=== PATIENT | female | born 1940 | race Caucasian/White ===

== ENCOUNTER 2017-09-26 15:06 | Day surgery (SDC) | payer MEDICARE, OTHER ==
[~2017-09-26 15:06] MED LIST: ALBU90OI INH; AMOX500 PO; ASPI81CH PO; ASPI81EC; ASPI81EC PO; ATOM10 PO; ATOR20 PO; Antivert25 MG PO; Budeprion Sr150 MG PO; CALCAVITD PO; CHOL10002 PO; CHRO200 PO; CYAN500 PO; DOCU100 PO; ERGO400 PO; ESTR2; ESTR2 PO; EZET10-40 PO; EZETIMIBE; GLIM2 PO; HYDACE5 PO; Hair, Skin & N1 EACH PO; Klor-Con 1010 MEQ PO; LEVO; LEVSOD125 PO; LEVSOD200; LEVSOD200 PO; LIOT5 PO; LOSA25 PO; METF500 PO; METF500C PO; METO50 PO; MULVITA PO; MULVITMIND PO; OLME20 PO; OXYACE5T PO; Omeprazole20 M1 PO; POTA10T; PRED20 PO; PROBIOTIC1 EAC2 PO; SIMV80 PO; SIMVASTATIN; SITA50T2 PO; TOLT2 PO; TOLT2ER PO; TOLT4; TOLT4 PO; TOPI100 PO; VENL37.5; VENL37.5ER PO; VITB100 PO; Zofran Odt4 MG SL
[2017-09-26] MEDS ORDERED: Zyprexa10 MG PO (18:13)
[2017-09-26] MEDS ORDERED: METO10 PO (18:13)
[2017-09-26] MEDS ORDERED: DEXA4 PO ×2 (18:14→18:16)
[2017-09-26] MEDS ORDERED: LIDOCAINE-PRIL1 EACH TOP (18:17)
[2017-09-26] MEDS ORDERED: LORA.5 PO (18:18)
[2017-09-26] MEDS ORDERED: PROC10 PO (18:19)
[2018-01-08] MEDS ORDERED: Questran4 GM PO (09:26)
== END 2017-09-26 17:00 | disposition home or self-care (01) ==
LOC: ATC 15:06
DX: C50.812 Malignant neoplasm of overlapping sites of left female breast (principal); C77.3 Secondary and unspecified malignant neoplasm of axilla and upper limb lymph nodes; Z17.1 Estrogen receptor negative status [ER-]; Z95.828 Presence of other vascular implants and grafts; Z79.899 Other long term (current) drug therapy
CPT/HCPCS: 96360; J1642; J7030

== ENCOUNTER 2017-10-03 00:43 | Day surgery (SDC) | payer MEDICARE, OTHER ==
[~2017-10-03 00:43] MED LIST changes: +DEXA4 PO; +LIDOCAINE-PRIL1 EACH TOP; +LORA.5 PO; +METO10 PO; +PROC10 PO; +Zyprexa10 MG PO
[2018-01-08] MEDS ORDERED: Questran4 GM PO (09:26)
== END 2017-10-03 15:08 | disposition home or self-care (01) ==
LOC: ATC 00:43
DX: R19.7 Diarrhea, unspecified (principal); R11.2 Nausea with vomiting, unspecified; C50.812 Malignant neoplasm of overlapping sites of left female breast; C77.3 Secondary and unspecified malignant neoplasm of axilla and upper limb lymph nodes; Z17.1 Estrogen receptor negative status [ER-]; Z95.828 Presence of other vascular implants and grafts; Z79.899 Other long term (current) drug therapy
CPT/HCPCS: 96360; J1642; J7030

== ENCOUNTER → 2017-11-04 | Outpatient (CLI) | payer MEDICARE, OTHER ==
[~2017-11-04] MED LIST changes: +Questran4 GM PO
[2017-11-04 13:35] LABS: Hematocrit 30.7 % (33.0-51.0); Hemoglobin 10.5 g/dL (11.5-16.0); Mean Corpuscular HGB 32.8 pg (26.0-34.0); Mean Corpuscular HGB Conc 34.2 g/dL (31.5-36.5); Mean Corpuscular Volume 96 fL (80-100); Platelet Count 99 K/mm3 (150-400); RDW Coefficient Variation 15.1 % (11.7-14.2); RDW Standard Deviation 53.4 fL (35.1-46.3); White Blood Cell Count 4.01 K/mm3 (4.00-11.30)
[2017-11-04 13:54] LABS: Alanine Aminotransfer (ALT/SGP 27 U/L (12-78); Albumin, Blood 3.1 g/dL (3.4-5.0); Albumin/Globulin Ratio 1.1 (0.8-1.8); Alk Phos 86 U/L (50-136); Anion Gap 10 mmol/L (6-16); Aspartate Aminotrans (AST/SGOT 9 U/L (12-37); Bilirubin, Total 0.4 mg/dL (0.1-1.0); Blood Urea Nitrogen 15 mg/dL (8-24); Bun/Creatinine Ratio 19.8 (12.0-20.0); CO2, Blood 21 mmol/L (21-32); Calcium, Blood 7.7 mg/dL (8.5-10.1); Chloride, Blood 107 mmol/L (98-108); Creatinine, Blood 0.76 mg/dL (0.40-1.00); Globulin, Blood 2.9 g/dL (2.2-4.0); Glomerular Filtration Rate >60 (60-); Glucose, Blood 79 mg/dL (70-99); Potassium, Blood 3.8 mmol/L (3.5-5.5); Sodium, Blood 138 mmol/L (136-145)
[2017-11-04 14:01] LABS: BAND PERCENT MAN 2 % (0-8); BASOPHILS ABSOLUTE MAN 0.04 K/mm3 (0.00-0.23); BASOPHILS PERCENT MAN 1 % (0-2); EOSINOPHILS PERCENT MAN 0 % (0-6); LYMPHOCYTES % ATYPICAL MANUAL 2 % (0-0); LYMPHOCYTES PERCENT MAN 38 % (21-46); MONOCYTES PERCENT MAN 15 % (4-13); NEUTROPHILS ABSOLUTE MAN 1.76 K/mm3 (1.96-9.15); SEG NEUTROPHILS PERCENT MAN 42 % (41-73); TOTAL CELLS COUNTED 100
== END ==
LOC: LAB 12:46
PROVIDERS: Internal Medicine Hematology & Oncology
DX: C50.812 Malignant neoplasm of overlapping sites of left female breast (principal); C77.3 Secondary and unspecified malignant neoplasm of axilla and upper limb lymph nodes; K12.31 Oral mucositis (ulcerative) due to antineoplastic therapy; R19.7 Diarrhea, unspecified; E86.0 Dehydration; Z17.1 Estrogen receptor negative status [ER-]
CPT/HCPCS: 80053; 85025

== ENCOUNTER 2017-11-07 00:17 | Day surgery (SDC) | payer MEDICARE, OTHER ==
[~2017-11-07 00:17] MED LIST changes: -Questran4 GM PO
[2018-01-08] MEDS ORDERED: Questran4 GM PO (09:26)
== END 2017-11-07 16:09 | disposition home or self-care (01) ==
LOC: ATC 00:17
DX: C50.812 Malignant neoplasm of overlapping sites of left female breast (principal); C77.3 Secondary and unspecified malignant neoplasm of axilla and upper limb lymph nodes; Z17.1 Estrogen receptor negative status [ER-]; E86.0 Dehydration; R19.7 Diarrhea, unspecified; E11.9 Type 2 diabetes mellitus without complications; E78.00 Pure hypercholesterolemia, unspecified; E03.9 Hypothyroidism, unspecified; F41.9 Anxiety disorder, unspecified
CPT/HCPCS: 96360; J1642; J7030

== ENCOUNTER → 2017-11-18 | Outpatient (CLI) | payer MEDICARE, OTHER ==
[~2017-11-18] MED LIST changes: +Questran4 GM PO
[2017-11-18 11:42] LABS: BASOPHILS ABSOLUTE AUTO 0.02 K/mm3 (0.00-0.23); BASOPHILS PERCENT AUTO 0 % (0-2); EOSINOPHILS PERCENT AUTO 0 % (0-6); Hemoglobin 9.3 g/dL (11.5-16.0); IMMATURE GRAN ABSOLUTE AUTO 0.07 K/mm3 (0.00-0.10); IMMATURE GRAN PERCENT AUTO 1 % (0-1); LYMPHOCYTES ABSOLUTE AUTO 1.16 K/mm3 (0.84-5.20); LYMPHOCYTES PERCENT AUTO 15 % (21-46); MONOCYTES ABSOLUTE AUTO 0.24 K/mm3 (0.16-1.47); MONOCYTES PERCENT AUTO 3 % (4-13); Mean Corpuscular HGB 33.2 pg (26.0-34.0); Mean Corpuscular HGB Conc 33.2 g/dL (31.5-36.5); Mean Platelet Volume 9.2 fL (9.1-12.4); NEUTROPHILS ABSOLUTE AUTO 6.25 K/mm3 (1.96-9.15); NEUTROPHILS PERCENT AUTO 81 % (41-73); Platelet Count 243 K/mm3 (150-400); RDW Coefficient Variation 18.1 % (11.7-14.2); RDW Standard Deviation 64.8 fL (35.1-46.3); White Blood Cell Count 7.74 K/mm3 (4.00-11.30)
[2017-11-18 11:56] LABS: Mean Corpuscular Volume 100 fL (80-100)
[2017-11-18 12:33] LABS: Anion Gap 8 mmol/L (6-16); Blood Urea Nitrogen 10 mg/dL (8-24); Bun/Creatinine Ratio 15.6 (12.0-20.0); CO2, Blood 24 mmol/L (21-32); Calcium, Blood 7.9 mg/dL (8.5-10.1); Chloride, Blood 108 mmol/L (98-108); Creatinine, Blood 0.64 mg/dL (0.40-1.00); Glomerular Filtration Rate >60 (60-); Glucose, Blood 192 mg/dL (70-99); Potassium, Blood 3.9 mmol/L (3.5-5.5); Sodium, Blood 140 mmol/L (136-145)
== END ==
LOC: LAB 11:01
PROVIDERS: Internal Medicine Hematology & Oncology
DX: C50.812 Malignant neoplasm of overlapping sites of left female breast (principal); C77.3 Secondary and unspecified malignant neoplasm of axilla and upper limb lymph nodes; K12.31 Oral mucositis (ulcerative) due to antineoplastic therapy; E87.6 Hypokalemia; R19.7 Diarrhea, unspecified; Z17.1 Estrogen receptor negative status [ER-]
CPT/HCPCS: 80048; 85025

== ENCOUNTER 2018-01-05 07:18 | Day surgery (SDC) | payer MEDICARE, OTHER ==
[~2018-01-05 07:18] MED LIST changes: -Questran4 GM PO
[2018-01-08] MEDS ORDERED: Questran4 GM PO (09:26)
== END 2018-01-05 22:44 | disposition home or self-care (01) ==
LOC: MOI US 07:18
PROC: BH01ZZZ Plain Radiography of Left Breast (ICD-10-PCS; principal; 2018-01-05)
DX: C50.812 Malignant neoplasm of overlapping sites of left female breast (principal); C77.3 Secondary and unspecified malignant neoplasm of axilla and upper limb lymph nodes
CPT/HCPCS: 19281; 19282

== ENCOUNTER → 2018-12-30 | Outpatient (CLI) | payer MEDICARE, OTHER ==
[~2018-12-30] MED LIST changes: +Questran4 GM PO
== END | disposition home or self-care (01) ==
LOC: LAB 10:50 → LAB SHORT 10:50
DX: A60.00 Herpesviral infection of urogenital system, unspecified (principal)
CPT/HCPCS: 87529

== ENCOUNTER → 2019-10-21 | Outpatient (CLI) | payer MEDICARE, OTHER ==
[2019-10-21 15:08] LABS: Source, Urine Clean Catch
[2019-10-21 15:24] LABS: Bilirubin, Urine Neg (Neg); Blood, Urine Neg (Neg); Glucose Qualitative, Urine 2+ (Neg); Ketones, Urine Neg (Neg); Leukocyte Esterase, Urine 2+ (Neg); Nitrite, Urine Neg (Neg); Protein, Urine 1+ (Neg); Specific Gravity, Urine 1.015 (1.003-1.022); Urobilinogen, Urine NORM (Normal)
[2019-10-21 16:21] LABS: Appearance, Urine Clear (Clear); Color, Urine Yellow (P-Yellow)
[2019-10-21 16:23] LABS: Bacteria Rare /hpf; Red Blood Cells, Urine 0-2 /hpf (0-2); Squamous Epithelial Cells Few /hpf (Few)
== END ==
LOC: LAB SHORT 15:06
PROVIDERS: Registered Nurse
DX: N32.81 Overactive bladder (principal)
CPT/HCPCS: 81001; 87086

== ENCOUNTER → 2021-06-12 | Outpatient (CLI) | payer MEDICARE ==
[2021-06-12 12:31] LABS: BASOPHILS ABSOLUTE AUTO 0.03 K/mm3 (0.00-0.23); BASOPHILS PERCENT AUTO 1 % (0-2); EOSINOPHILS ABSOLUTE AUTO 0.06 K/mm3 (0.00-0.68); EOSINOPHILS PERCENT AUTO 2 % (0-6); Hematocrit 41.7 % (33.0-51.0); Hemoglobin 13.4 g/dL (11.5-16.0); IMMATURE GRAN PERCENT AUTO 0 % (0-1); LYMPHOCYTES ABSOLUTE AUTO 1.08 K/mm3 (0.84-5.20); LYMPHOCYTES PERCENT AUTO 28 % (21-46); MONOCYTES ABSOLUTE AUTO 0.38 K/mm3 (0.16-1.47); MONOCYTES PERCENT AUTO 10 % (4-13); Mean Corpuscular HGB 28.9 pg (26.0-34.0); Mean Corpuscular HGB Conc 32.1 g/dL (31.5-36.5); Mean Corpuscular Volume 90 fL (80-100); Mean Platelet Volume 9.6 fL (9.1-12.4); NEUTROPHILS ABSOLUTE AUTO 2.34 K/mm3 (1.96-9.15); NEUTROPHILS PERCENT AUTO 60 % (41-73); Platelet Count 260 K/mm3 (150-400); RDW Coefficient Variation 19.8 % (11.7-14.2); Red Blood Cell Count 4.64 M/mm3 (3.80-5.20); White Blood Cell Count 3.89 K/mm3 (4.00-11.30)
[2021-06-12 13:27] LABS: Alanine Aminotransfer (ALT/SGP 27 U/L (12-78); Albumin, Blood 3.5 g/dL (3.4-5.0); Albumin/Globulin Ratio 0.8 (0.8-1.8); Alk Phos 74 U/L (50-136); Anion Gap 3 mmol/L (6-16); Aspartate Aminotrans (AST/SGOT 15 U/L (12-37); Bilirubin, Total 0.4 mg/dL (0.1-1.0); Blood Urea Nitrogen 21 mg/dL (8-24); Bun/Creatinine Ratio 25.9 (12.0-20.0); CO2, Blood 30 mmol/L (21-32); Calcium, Blood 9.3 mg/dL (8.5-10.1); Chloride, Blood 101 mmol/L (98-108); Cholesterol 238 mg/dL (50-200); Creatinine, Blood 0.81 mg/dL (0.40-1.00); Globulin, Blood 4.3 g/dL (2.2-4.0); Glomerular Filtration Rate >60 (60-); Glucose, Blood 302 mg/dL (70-99); HDL Cholesterol 60 mg/dL (>39); LDL/HDL RATIO 2.6; Low Density Lipoprotein Chol 154 mg/dL (0-110); Potassium, Blood 4.1 mmol/L (3.5-5.5); Sodium, Blood 134 mmol/L (136-145); Total Protein, Blood 7.8 g/dL (6.4-8.2); Triglycerides 121 mg/dL (30-160); Very Low Density Lipoprot Chol 24 mg/dL (6-32)
== END | disposition home or self-care (01) ==
LOC: LAB SHORT 10:23 → LAB 10:23 → LAB FUT 03-30 17:15
PROVIDERS: Nurse Practitioner Family
DX: E78.5 Hyperlipidemia, unspecified (principal); E03.9 Hypothyroidism, unspecified; E11.9 Type 2 diabetes mellitus without complications; I10 Essential (primary) hypertension
CPT/HCPCS: 36415; 80053; 80061; 83036; 84443; 85025

== ENCOUNTER → 2021-11-14 | Outpatient (CLI) | payer MEDICARE ==
[2021-11-14 14:27] LABS: Anion Gap 10 mmol/L (6-16); Blood Urea Nitrogen 36 mg/dL (8-24); Bun/Creatinine Ratio 40.8 (12.0-20.0); CO2, Blood 27 mmol/L (21-32); Calcium, Blood 9.7 mg/dL (8.5-10.1); Chloride, Blood 104 mmol/L (98-108); Creatinine, Blood 0.88 mg/dL (0.40-1.00); Glomerular Filtration Rate >60 (60-); Glucose, Blood 225 mg/dL (70-99); Potassium, Blood 4.2 mmol/L (3.5-5.5); Sodium, Blood 141 mmol/L (136-145)
== END | disposition home or self-care (01) ==
LOC: LAB SHORT 10:52 → LAB FUT 07-26 11:05
PROVIDERS: Nurse Practitioner Family
DX: E11.9 Type 2 diabetes mellitus without complications (principal)
CPT/HCPCS: 36415; 80048; 83036

== ENCOUNTER 2022-03-12 12:19 | Day surgery (SDC) | payer MEDICARE, OTHER ==
[~2022-03-12] VITALS: Ht 167.6 cm; Wt 76.8 kg
[~2022-03-12 12:19] MED LIST changes: +BUSPIRONE HCL7.5 M1 PO; +JARDIANCE10 MG PO; +Prozac20 MG PO; +Prozac40 MG PO
== END 2022-03-12 14:45 | disposition home or self-care (01) ==
LOC: ORSCSDS 12:19
PROVIDERS: Surgery
PROC: 0DBL8ZX Excision of Transverse Colon, Via Natural or Artificial Opening Endoscopic, Diagnostic (ICD-10-PCS; principal; 2022-03-12 13:45)
DX: Z12.11 Encounter for screening for malignant neoplasm of colon (principal); Z86.010 Personal history of colon polyps; D12.3 Benign neoplasm of transverse colon; K57.30 Diverticulosis of large intestine without perforation or abscess without bleeding; E11.9 Type 2 diabetes mellitus without complications; I10 Essential (primary) hypertension; E03.9 Hypothyroidism, unspecified; E78.00 Pure hypercholesterolemia, unspecified; F32.A Depression, unspecified; F41.9 Anxiety disorder, unspecified; Z79.82 Long term (current) use of aspirin; Z79.899 Other long term (current) drug therapy
CPT/HCPCS: 82947; 88305; J2704; J7120

== ENCOUNTER 2024-12-20 17:07 | Observation (INO) | payer MEDICARE, OTHER ==
[~2024-12-20] VITALS: Ht 167.6 cm; Wt 81.4 kg
[~2024-12-20 17:07] MED LIST changes: +AMARYL4 M1 PO; +ATOR40TA PO; +CHOLP PO; +EUTHYROX125 MCG PO; -Questran4 GM PO; -TOLT2 PO; +TOLTERODINE TART4 MG PO
[2024-12-20 17:41] LABS: BASOPHILS ABSOLUTE AUTO 0.03 K/mm3 (0.00-0.23); BASOPHILS PERCENT AUTO 1 % (0-2); EOSINOPHILS ABSOLUTE AUTO 0.13 K/mm3 (0.00-0.68); EOSINOPHILS PERCENT AUTO 3 % (0-6); Hematocrit 37.6 % (33.0-51.0); Hemoglobin 11.9 g/dL (11.5-16.0); IMMATURE GRAN PERCENT AUTO 0 % (0-1); LYMPHOCYTES ABSOLUTE AUTO 1.35 K/mm3 (0.84-5.20); LYMPHOCYTES PERCENT AUTO 31 % (21-46); MONOCYTES PERCENT AUTO 9 % (4-13); Mean Corpuscular HGB 29.5 pg (26.0-34.0); Mean Corpuscular HGB Conc 31.6 g/dL (31.5-36.5); Mean Corpuscular Volume 93 fL (80-100); Mean Platelet Volume 9.7 fL (9.1-12.4); NEUTROPHILS ABSOLUTE AUTO 2.43 K/mm3 (1.96-9.15); NEUTROPHILS PERCENT AUTO 56 % (41-73); Platelet Count 267 K/mm3 (150-400); RDW Coefficient Variation 12.8 % (11.7-14.2); RDW Standard Deviation 43.8 fL (35.1-46.3); Red Blood Cell Count 4.03 M/mm3 (3.80-5.20); White Blood Cell Count 4.34 K/mm3 (4.00-11.30)
[2024-12-20 18:09] LABS: Albumin, Blood 3.6 g/dL (3.4-5.0); Albumin/Globulin Ratio 0.9 (0.8-1.8); Bilirubin, Total 0.2 mg/dL (0.1-1.0); Bun/Creatinine Ratio 34.9 (12.0-20.0); Calcium, Blood 9.2 mg/dL (8.5-10.1); Creatinine, Blood 0.72 mg/dL (0.40-1.00); Magnesium, Blood 1.2 mg/dL (1.6-2.4); Potassium, Blood 4.2 mmol/L (3.5-5.5); Total Protein, Blood 7.6 g/dL (6.4-8.2)
[2024-12-20 18:34] LABS: International Normalized Ratio 0.99; Prothrombin Time Results 10.6 Sec (9.7-11.5)
[2024-12-20] MEDS ORDERED: Ondansetron HCl 2 MG / ML 2ML Vial IV PRN (20:30)
[2024-12-20] MEDS ORDERED: NS 1,000 ML IV SCH (20:30)
[2024-12-20] MEDS ORDERED: Atorvastatin 40 MG Tab PO SCH (21:00)
[2024-12-20] MEDS ORDERED: Enoxaparin 40 MG/0.4 ML SYR SC SCH (21:00)
[2024-12-20] MEDS ORDERED: Aspirin 81 MG Chew PO SCH (21:00)
[2024-12-20] MEDS ORDERED: Clopidogrel Bisulfate 75 MG Tab PO SCH (21:00)
[2024-12-20 22:10] VITALS: BP 165/94
--- NOTE | 2024-12-20 22:21 | NUR ---
ADMIT NOTE 84 YR OLD FEMALS ADMITTED TO FLOOR FROM THE ED WITH DX OF TIA. ALERT AND ORIENTED X 4, OCCASIONAL FORGETFULNESS IN ANSWERING QUESTIONS. RESPS EVEN. UP WITH OBSESRVATOIN. ABLE TO REPOSITION SELF IN BED WITHOUT ASSISTANCE FOR COMFORT. ORIENTED TO USE OF CALL LIGHT, AND BED CONTROL. SKIN CLEAR. BUTCHER MEAT EQUAL, PLANTAR AND DORSI FLEXION EQUAL AND STRONG. DENIES LOS OF FEELING. WILL CONTINUE TO MONITOR. CALL LIGHT IN REACH
[2024-12-20] MEDS ORDERED: Magnesium Sulf 2 GM/Water 50ML 50 ML IV ONE (23:30)
[2024-12-21 00:01] VITALS: BP 160/88
[2024-12-21 01:23] LABS: Source, Urine Clean Catch
[2024-12-21 01:25] LABS: Bilirubin, Urine Neg (Neg); Blood, Urine Neg (Neg); Glucose Qualitative, Urine Neg (Neg); Ketones, Urine Neg (Neg); Leukocyte Esterase, Urine 1+ (Neg); Nitrite, Urine Pos (Neg); Protein, Urine Neg (Neg); Urobilinogen, Urine NORM (Normal)
[2024-12-21 01:30] LABS: Appearance, Urine Clear (Clear); Color, Urine Pale Yellow (P-Yellow)
[2024-12-21 01:33] LABS: Bacteria Many /hpf; Red Blood Cells, Urine Not Seen /hpf (0-2); Squamous Epithelial Cells Not Seen /hpf (Few)
--- NOTE | 2024-12-21 03:34 | NUR ---
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 BP ELEVATED, OTHERWISE VSS. ALERT AND ORIENTED, BUT SOME MISSED WORDS NOTED WITH SPEECH. VOICED FRUSTRATION WITH NOT REMEMBERING WORDS. IVF OF NS INFUSING AT 75 ML/HR. MAGNESIUM ADMIN FOR ONE TIME ONLY SUPPLEMENT FOR LOW MAG. AWAKE AT INTERVALS UA OBTAINED AND SENT TO LAB FOR TESTING. ORIENTED TO USE OF CALL LIGHT. CALL LIGHT IN REACH, RAILS UP X 3 AND BED IN LOW POSITION FOR SAFETY. NEURO CHECKS DONE - SEE DOC FLOW SHEETS FOR PROGRESS. UP KIRSTIN WITH ASSIST. WILL CONT TO MONITOR
[2024-12-21 03:57] VITALS: BP 131/77
[2024-12-21 05:30] LABS: BASOPHILS ABSOLUTE AUTO 0.03 K/mm3 (0.00-0.23); BASOPHILS PERCENT AUTO 1 % (0-2); EOSINOPHILS ABSOLUTE AUTO 0.15 K/mm3 (0.00-0.68); EOSINOPHILS PERCENT AUTO 5 % (0-6); Hematocrit 34.3 % (33.0-51.0); Hemoglobin 11.1 g/dL (11.5-16.0); IMMATURE GRAN PERCENT AUTO 0 % (0-1); LYMPHOCYTES ABSOLUTE AUTO 1.56 K/mm3 (0.84-5.20); LYMPHOCYTES PERCENT AUTO 47 % (21-46); MONOCYTES PERCENT AUTO 9 % (4-13); Mean Corpuscular HGB 29.3 pg (26.0-34.0); Mean Corpuscular HGB Conc 32.4 g/dL (31.5-36.5); Mean Corpuscular Volume 91 fL (80-100); Mean Platelet Volume 9.7 fL (9.1-12.4); NEUTROPHILS ABSOLUTE AUTO 1.31 K/mm3 (1.96-9.15); NEUTROPHILS PERCENT AUTO 39 % (41-73); Platelet Count 237 K/mm3 (150-400); RDW Coefficient Variation 12.7 % (11.7-14.2); RDW Standard Deviation 42.3 fL (35.1-46.3); Red Blood Cell Count 3.79 M/mm3 (3.80-5.20); White Blood Cell Count 3.35 K/mm3 (4.00-11.30)
[2024-12-21 05:55] LABS: Albumin, Blood 3.2 g/dL (3.4-5.0); Albumin/Globulin Ratio 0.8 (0.8-1.8); Bilirubin, Total 0.2 mg/dL (0.1-1.0); Bun/Creatinine Ratio 30.7 (12.0-20.0); Calcium, Blood 9.2 mg/dL (8.5-10.1); Creatinine, Blood 0.65 mg/dL (0.40-1.00); Globulin, Blood 3.8 g/dL (2.2-4.0); Potassium, Blood 3.6 mmol/L (3.5-5.5)
[2024-12-21] MEDS ORDERED: Insulin Human Lispro 100 Units/ML 3ML Syringe SC SCH (07:30)
[2024-12-21 07:51] VITALS: BP 133/91
--- NOTE | 2024-12-21 08:07 | NUR ---
ASSUMPTION OF CARE: ASSUMED CARE OF PATIENT. WOKEN FOR BEDSIDE SHIFT REPORT AND PUT IN HEARING AIDS TO PARTICIPATE. BREATHING EVEN AND UNLABORED ON ROOM AIR. TELE SINUS c [facility] @ 61. BED IN LOWEST POSITION. CALL LIGHT WITHIN REACH. NO ACUTE NEEDS.
[2024-12-21] MEDS ORDERED: CLOP75 PO ×2 (13:32→15:38)
[2024-12-21] MEDS ORDERED: PANT20 PO ×2 (13:33→15:38)
[2024-12-21] MEDS ORDERED: JARDIANCE25 MG PO (13:34)
--- NOTE | 2024-12-21 14:13 | NUR ---
PATIENT HOME MEDS: ASA 81mg QD BUSPAR 7.5mg BID OXYBUTYNIN ER 5mg QD OMEPRAZOLE 20mg QD DESVENLAFAXINE ER 50mg QD METFORMIN ER 500mg 2 TABS PO BID ESTRADIOL 0.1mg/gm CREAM - INTRAVAGINALLY TIW ATORVASTATIN 20mg QHS GLIMEPIRIDE 4mg QHS LEVOTHYROXINE 125mcg QAM PIOGLITAZONE 30mg QD NYSTATIN CREAM PRN DORZOLAMIDE AND TIOLOL 2% / 0.5% OPHLAMIC SOLUTION - OU BID
[2024-12-21] MEDS ORDERED: DESV50 PO (14:22)
[2024-12-21] MEDS ORDERED: OXYB5 PO (14:22)
[2024-12-21] MEDS ORDERED: ESTA1 (14:23)
[2024-12-21] MEDS ORDERED: Estrace Vagin42.5 GM UD (14:24)
[2024-12-21] MEDS ORDERED: NYSTATIN15 GM TOP (14:24)
[2024-12-21] MEDS ORDERED: PIOG30 PO (14:25)
--- NOTE | 2024-12-21 19:11 | NUR ---
DISCHARGE SUMMARY: A&Ox4. PLEASANT AND COOPERATIVE WITH CARE. CALLS APPROPRIATELY AND IS ABLE TO ADVOCATE NEEDS EFFECTIVELY. AMBULATES c SBA USING CANE. CONTINENT OF BOWEL AND BLADDER. LBM TODAY. MEDS WHOLE c FLUIDS. TELE SINUS c [facility]. NO C/O PAIN OR DISCOMFORT TODAY. WORKED c PT/OT. MEDICATIONS FAXED TO [facility]. INSTRUCTED TO FOLLOW-UP WITH PCP AND CARDIOLOGY. LEFT FLOOR WITH ALL BELONGINGS AND DISCHARGE PACKET, ESCORTED BY DAUGHTER. TRANSPORTATION PROVIDED BY DAUGHTER VIA POV.
== END 2024-12-21 16:23 | disposition home or self-care (01) ==
LOC: ER 17:07 → MEDS 20:20 → ENPENDDIS 12-21 13:08 → MEDS 12-21 16:23
PROVIDERS: Student in an Organized Health Care Education/Training Program; ADMIT Internal Medicine
DX: G45.9 Transient cerebral ischemic attack, unspecified (principal); K21.9 Gastro-esophageal reflux disease without esophagitis; F32.A Depression, unspecified; E78.5 Hyperlipidemia, unspecified; E03.9 Hypothyroidism, unspecified; I10 Essential (primary) hypertension; E11.9 Type 2 diabetes mellitus without complications; Z79.82 Long term (current) use of aspirin; Z79.84 Long term (current) use of oral hypoglycemic drugs; Z79.899 Other long term (current) drug therapy; Z85.3 Personal history of malignant neoplasm of breast
CPT/HCPCS: 36415; 70450; 70496; 70498; 80053; 81001; 82947; 83735; 83880; 84100; 85025; 85610; 85730; 87077; 87086; 87186; 93005; 93010; 93306; 96372-59; 96374; 97112; 97161; 97165; 97535; 99285-25; A9270; G0378; J1650; J3475; J7030; Q9967